=== PATIENT | male | born 1960 ===

== ENCOUNTER 2025-05-18 16:24 | Emergency (ER) | payer MEDICARE, SELFPAY ==
[2025-05-18] VITALS (41 sets, daily range): BP systolic 107–146; BP diastolic 57–82; PULSE 55–75; RESP 7–24; TEMP 36.7; O2SAT 93–98; BMI 34.2
--- NOTE | 2025-05-18 16:35 | ED.GENADULT ---
HPI - General Adult General Date Seen: 05/18/25 Chief complaint: Chest Pain Stated complaint: Chest pain, SOB Time Seen by Provider: 05/18/25 16:35 History of Present Illness HPI narrative: 65-year-old female presenting to the ER today for evaluation of shortness of breath and chest pain. He presents to the ER today with his friend, who helps some thumb in some of his history. The patient is found report that he has had chest pain off and on for about the past 17 years, since 2007. The results like the chest pains have been intermittently, typically once every few months or couple of years over the past couple of days but that the past couple of months have been more frequent, happening a couple times per week. They recall that he had a workup done through the [employer] system in 2018, but it does not sound like he ever had a stress test or an angiogram He apparently did have to go to an ER in [place] about a month ago for chest pain. He apparently had some workup in some of his electrolytes may have been out of balance. He is not exactly sure what is workup showed. It sounds like he did not rule in for STEMI. It sounds like he may have had an outpatient stress test recommended but he never followed up to get it done, because he did not have health insurance. Now that he has turned 65, he is on Medicare He does not have a regular primary care provider. As far as he knows he does not have any other health problems such as high blood pressure, high cholesterol, diabetes, or cancer. However it sounds like he really has not been checked for these either. He and his friend report that he gets chest pain a couple of times per week, often related to exertion when he is working in the shop. He often will have to stop, hold his chest, and rest a few minutes to catch his breath. His current symptoms started yesterday. He started having chest pain yesterday when he had a disagreement with his son. It sounds like he had an episode of chest pain and shortness of breath last night came and. This morning when he was trying to drive his vehicle for work he started having more chest pain is located in the center of his chest. Sometimes it radiates to his left angle of his jaw. Earlier today was radiating down his right arm to the right humerus. It does not typically do that. The pain is been present off and on all today and is much more frequent than normal. It does not radiate to his back or to his abdomen. He describes it as a pain. It is not ripping or tearing. It is not pleuritic. No cough He went home to rest and decided to stop working. While resting and watching shows afternoon he started having more chest pain. At that point he finally gave in an asked his friend to bring him to hospital. He is concerned because the chest pain is more severe and more persistent than normal. He also felt a little bit short of breath. He does not have any swelling in his legs. He is not currently on any medications. He has not taken any aspirin yet today. Related Data Home Medications ?Medication ?Instructions ?Recorded ?Confirmed No Known Home Medications 05/18/25 05/18/25 Allergies Allergy/AdvReac Type Severity Reaction Status Date / Time No Known Drug Allergies Allergy Verified 05/18/25 16:31 [facility] Social History Non-prescribed substance use: denies use Exam Narrative: Exam Narrative: Constitutional: Appears well-developed and well-nourished. Alert. Conversant. Non toxic. HENT: Head: Atraumatic. Nose: Nose normal. Mouth/Throat: Oral mucosa is clear and moist. no trismus. Pharynx normal. Tonsils symmetric. No tonsillar enlargement, erythema, or exudate. Eyes: Conjunctivae normal. EOM normal. Pupils equal, round, and reactive to light. No scleral icterus. Neck: Normal range of motion. Neck supple. No tracheal deviation present. No JVD Cardiovascular: Normal rate, regular rhythm. No gallop. No friction rub. No murmur heard. Symmetric radial and PT artery pulses Pulmonary/Chest: Effort normal. No stridor. No respiratory distress. No wheezes. No rales. No rhonchi . No tenderness. Abdominal: Soft. Bowel sounds normal. No distension. No mass. No tenderness. No rebound. No guarding. Musculoskeletal: RUE: Normal range of motion. No tenderness. No deformity LUE: Normal range of motion. No tenderness. No deformity RLE: Normal range of motion. No edema. No tenderness. No deformity LLE: Normal range of motion. No edema. No tenderness. No deformity Lymph: No cervical adenopathy. Neurological: Alert and oriented to person, place, and time. Normal strength. CN II-VII intact. No sensory deficit. GCS eye subscore is 4. GCS verbal subscore is 5. GCS motor subscore is 6. Normal coordination Skin: Skin is warm and dry. No rash noted. No pallor. Normal capillary refill. Psychiatric: Normal mood. Normal affect. Const: Vital Signs, click to edit/add: Vital Signs - 24 hr 05/18/25 16:27 05/18/25 17:20 05/18/25 17:22 Temperature 98.1 F Pulse Rate 71 68 Pulse Rate [Pulse Oximeter] 66 Respiratory Rate 18 12 12 Blood Pressure 115/73 Blood Pressure [Le ft Upper Arm] 146/82 H Pulse Oximetry 98 94 93 Oxygen Delivery Me thod Room Air 05/18/25 17:30 05/18/25 17:45 05/18/25 17:46 Temperature Pulse Rate 75 59 L 63 Pulse Rate [Pulse Oximeter] Respiratory Rate 12 16 Blood Pressure 125/73 Blood Pressure [Le ft Upper Arm] Pulse Oximetry 93 94 96 Oxygen Delivery Me thod 05/18/25 18:00 05/18/25 18:01 05/18/25 18:15 Temperature Pulse Rate 63 68 60 Pulse Rate [Pulse Oximeter] Respiratory Rate 20 16 14 Blood Pressure 113/66 Blood Pressure [Le ft Upper Arm] Pulse Oximetry 93 93 96 Oxygen Delivery Me thod 05/18/25 18:22 05/18/25 18:30 05/18/25 18:42 Temperature Pulse Rate 62 55 L 55 L Pulse Rate [Pulse Oximeter] Respiratory Rate 9 L 15 20 Blood Pressure 119/69 121/72 Blood Pressure [Le ft Upper Arm] Pulse Oximetry 93 96 94 Oxygen Delivery Me thod 05/18/25 18:45 05/18/25 19:00 05/18/25 19:02 Temperature Pulse Rate 55 L 56 L 56 L Pulse Rate [Pulse Oximeter] Respiratory Rate 21 16 10 L Blood Pressure 123/68 Blood Pressure [Le ft Upper Arm] Pulse Oximetry 94 96 97 Oxygen Delivery Me thod 05/18/25 19:15 05/18/25 19:21 05/18/25 19:30 Temperature Pulse Rate 57 L 59 L 64 Pulse Rate [Pulse Oximeter] Respiratory Rate 15 14 18 Blood Pressure 123/77 Blood Pressure [Le ft Upper Arm] Pulse Oximetry 97 97 94 Oxygen Delivery Me thod 05/18/25 19:42 05/18/25 19:45 05/18/25 20:00 Temperature Pulse Rate 59 L 60 61 Pulse Rate [Pulse Oximeter] Respiratory Rate 8 L 7 L 22 Blood Pressure 111/57 L Blood Pressure [Le ft Upper Arm] Pulse Oximetry 96 96 96 Oxygen Delivery Me thod 05/18/25 20:02 05/18/25 20:03 05/18/25 20:15 Temperature Pulse Rate 57 L 56 L 59 L Pulse Rate [Pulse Oximeter] Respiratory Rate 9 L 11 L 9 L Blood Pressure 119/73 Blood Pressure [Le ft Upper Arm] Pulse Oximetry 96 93 97 Oxygen Delivery Me thod 05/18/25 20:22 05/18/25 20:30 Temperature Pulse Rate 57 L 61 Pulse Rate [Pulse Oximeter] Respiratory Rate 17 14 Blood Pressure 113/60 Blood Pressure [Le ft Upper Arm] Pulse Oximetry 96 96 Oxygen Delivery Me thod Course Course ED Course: Recheck pain down from a 5/10 down to a 1/10 after nitro. The develop a headache. Reevaluation(s) Reevaluation #1: Recheck-pain still essentially gone. May be intermittently a 1/10. Repeat EKG does show still persistent T-wave inversion but less notable T-wave inversion compared to arrival. Vital Signs Vital signs: Initial Vital Signs Temperature 98.1 F 05/18/25 16:27 Temperature Source Temporal Artery Scan 05/18/25 16:27 Pulse Rate 66 05/18/25 16:27 Respiratory Rate 18 05/18/25 16:27 Blood Pressure 146/82 H 05/18/25 16:27 Blood Pressure Mean 103 05/18/25 16:27 Blood Pressure Position Sitting 05/18/25 16:27 Pulse Oximetry 98 05/18/25 16:27 Oxygen Delivery Method Room Air 05/18/25 16:27 Vital Signs Temperature 98.1 F 05/18/25 16:27 Pulse Rate 66 05/18/25 16:27 Respiratory Rate 18 05/18/25 16:27 Blood Pressure 146/82 H 05/18/25 16:27 Pulse Oximetry 98 05/18/25 16:27 Oxygen Delivery Method Room Air 05/18/25 16:27 Temperature 98.1 F 05/18/25 16:27 Pulse Rate 61 05/18/25 20:30 Respiratory Rate 14 05/18/25 20:30 Blood Pressure 113/60 05/18/25 20:22 Pulse Oximetry 96 05/18/25 20:30 Oxygen Delivery Method Room Air 05/18/25 16:27 Medications Administered Medications: Generic Name Dose Route Start Last Admin Trade Name Elisha PRN Reason Stop Dose Admin Nitroglycerin 0.4 mg 05/18/25 16:57 05/18/25 17:28 Nitroglycerin 0.4 Mg Tab.Subl SUBLINGUAL 0.4 mg Q5M PRN Administration Discontinued Medications Generic Name Dose Route Start Last Admin Trade Name Frealexi PRN Reason Stop Dose Admin Aspirin 324 mg 05/18/25 16:57 05/18/25 17:04 Aspirin 81 Mg Tab.Chew PO 05/18/25 16:58 324 mg ONCE ONE Administration Fentanyl 50 mcg 05/18/25 18:00 05/18/25 19:14 Fentanyl 100 Mcg/2 Ml Inj IVP 05/18/25 18:01 Not Given ONCE ONE Fentanyl 50 mcg 05/18/25 18:01 05/18/25 19:13 Fentanyl 100 Mcg/2 Ml Inj IVP 05/18/25 18:02 Not Given ONCE ONE Sodium Chloride 1,000 mls @ 1,000 mls/hr 05/18/25 17:00 05/18/25 19:13 0.9 % Sodium Chloride 1000 Ml IV 05/18/25 17:59 Infused .Q1H GEE Infusion Midazolam HCl 1 mg 05/18/25 18:00 05/18/25 19:13 Midazolam Hcl 1 Mg/Ml Inj IVP 05/18/25 18:01 Not Given ONCE ONE Medical Decision Making MDM Narrative Medical decision making narrative: This patient presents to the ER today for evaluation of chest pain that is been off and on since yesterday. Patient actually has a history of intermittent chest pains occasionally for about 17 years but he has had more persistent more significant chest pain since yesterday. It sounds like he has had some occasional evaluations for chest pain in the past but does not really have good primary care or any follow-up after his ER visit for chest pain because he has not had insurance up until last month when he turns 65 and got Medicare. He does not have a regular doctor.. Differential was broad. No evidence of palpitations, syncope or other cardiac dysrhythmia. We considered possible ACS. HEART score is 6, which is moderate risk. Given time since onset of symptoms, with intermittent pains all afternoon we did check a 2nd 3 hour troponin and is still unchanged at 0.01-normal. Overall his story is concerning, EKG shows T-wave inversions in V3-V6 when he arrived. Pain did respond to nitro. Story is concerning for possible unstable angina. D/w cardiology from [facility]. Based on the patient's clinical presentation and concern about unstable angina. Given the patient's elevated heart score and previous difficulty with outpatient follow-up, absence of any primary care here in [place], statement processor and I agree that the only reasonable and safe option for this patient would be admission for further risk stratification. Since we are not able to do any stress test, nuclear test, coronary CTA or other risk stratification imaging here in [place], transfer to a hospital with cardiology capabilities is indicated. Dr. Tyesha oates accepts the patient to [facility] on behalf of the hospitalist. I discussed this plan of care with the patient and his friends and they gave their agreement. Unfortunately there will be an up to 8 hour delay for bed placement at [facility]. Therefore the patient will have to board here in [place] until bed can be arranged. Will start the patient on heparin for unstable angina. EKG shows no evidence for pericarditis. Clinical presentation not suggestive of myocarditis. Chest x-ray shows no evidence for pneumonia, pneumothorax, pulmonary edema, pleural effusion, rib fracture, cardiomegaly. Mediastinum is normal on the x-ray. The patient has no ripping or tearing pain through to the back and has symmetric pulses on exam, no other acute neuro findings so I doubt aortic dissection. Risk of radiation and contrast exposure would outweigh the benefit of CT angiogram. We considered PE for this patient. He did recently travel from [place] to [place]. No leg swelling. Overall low risk but not 0 risk. Screening D-dimer is normal. Therefore risk of CTA would outweigh the benefit. No wheezing or bronchospasm to suggest COPD/asthma. No signs of chest wall cellulitis, shingles, injury. Discussed with my partner, Dr. Manzano at 10:00 p.m.. She will monitor the patient here in the [place] ER until a bed can be arranged. If he develops worsening chest pain she will repeat EKG look for evolving ST or T-wave changes. He is full code she. . Lab Data Labs: Lab Results 05/18/25 05/18/25 05/18/25 Range/Units 16:57 16:59 20:00 WBC 5.41 (4.50-11.00) K/uL RBC 4.71 (4.30-5.90) m/uL Hgb 14.2 (13.5-17.5) gm/dL Hct 42.4 (37.0-53.0) % MCV 90 (80-100) fL MCH 30 (26-34) pg MCHC 34 (32-36) gm/dL RDW Coeff of Luzma 13.7 (11.5-15.5) % Plt Count 218 (140-440) K/uL Neut % (Auto) 33.2 L (42.0-72.0) % Lymph % (Auto) 49.9 H (20-44) % [place] % (Auto) 12.4 H (0.0-11.0) % Eos % (Auto) 4.3 (0.0-7.0) % Baso % (Auto) 0.2 (0.0-3.0) % Neut # (Auto) 1.80 (1.7-7.0) K/uL Lymph # (Auto) 2.70 (0.90-2.90) K/uL [place] # (Auto) 0.70 (0.00-0.90) K/UL Eos # (Auto) 0.23 (0.00-0.50) K/uL Baso # (Auto) 0.01 (0.00-0.30) K/uL Abs Immat Gran (auto) 0.00 (0.00-0.30) K/uL Imm/Tot Granulo (auto) 0.0 % D-Dimer Quant (PE/DVT) 0.27 (0.00-0.50) ug/ml Sodium 136 (135-149) mmol/L Potassium 3.9 (3.6-5.1) mmol/L Chloride 106 (96-114) mmol/L Carbon Dioxide 21 (20-32) mmol/L Anion Gap 9 (7-15) mEq/L BUN 20 (7-30) mg/dL Creatinine 0.8 (0.5-1.5) mg/dL Estimated Creat Clear 66.46 Estimated GFR 98 ml/min Glucose 120 H (60-115) mg/dL Calcium 9.2 (8.4-10.6) mg/dL POC Troponin I 0.01 0.01 (0.01-0.04) ng/ml Imaging Data Chest x-ray: Attestation: I have reviewed the pertinent imaging results. Radiologist's impression: Findings/Impression: Cardiovascular and mediastinum: Heart size is normal. Unremarkable mediastinum. Lungs and pleural space: Minimal central congestive changes. Remainder of the lungs and pleural spaces are clear. No pneumothorax. No other findings to explain chest pain or shortness of breath. Bones and soft tissues: No acute findings. ECG Data Attestation: I personally reviewed and interpreted this ECG as follows: Interpretation: Normal sinus rhythm Rate 64 NC interval 150 Left axis deviation. Incomplete right bundle-branch block T-wave inversion in leads V3-V6. No ST segment elevation or depression. Suspicious for ischemia but not definitive for STEMI. No old EKGs available for comparison QT 440, QTC 453 Repeat EKG Sinus bradycardia Rate 57 NC interval 154 Normal QRS axis. Incomplete right bundle-branch block. Patient still has T-wave inversions in V3-V4 but less prominent than 1st EKG. She no definite ST segment elevation or depression. QTC 460, QTC 447 Discharge Plan Discharge Clinical Impression: Unstable angina Patient Disposition: [facility] Prescriptions: No Action No Known Home Medications Stand Alone Forms: [employer] Info Instructions
--- NOTE | 2025-05-18 16:57 | CRLHL7_ITS ---
For Patients: As a result of the Century Cures Act, medical imaging exams and procedure reports are released immediately into your electronic medical record. You may view this report before your referring provider. If you have questions, please contact your health care provider. Indication: Chest pain and shortness of breath. Technique: Chest 1 view. Comparison: None. Findings/Impression: Cardiovascular and mediastinum: Heart size is normal. Unremarkable mediastinum. Lungs and pleural space: Minimal central congestive changes. Remainder of the lungs and pleural spaces are clear. No pneumothorax. No other findings to explain chest pain or shortness of breath. Bones and soft tissues: No acute findings. Dictated by Brian Melendez MD @ 05/18/2025 6:15:48 PM (Electronically Signed)
[2025-05-18] MEDS: NITROGLYCERIN 0.4 MG TAB.SUBL SUBLINGUAL ×2 (17:04→17:28)
[2025-05-18] MEDS: ASPIRIN 81 MG TAB.CHEW 324 MG PO (17:04)
[2025-05-18 17:25] LABS: Hematocrit* 42.4 % (37.0-53.0); Hemoglobin* 14.2 gm/dL (13.5-17.5); Immature Granulocytes Abs Auto 0.00 K/uL (0.00-0.30); Immature Granulocytes Pct Auto 0.0 %; Lymphocytes Absolute Auto 2.70 K/uL (0.90-2.90); Mean Corpuscular HGB Conc 34 gm/dL (32-36); Mean Corpuscular Hemoglobin 30 pg (26-34); Mean Corpuscular Volume 90 fL (80-100); RDW Coefficient of Variation % 13.7 % (11.5-15.5); Red Blood Count* 4.71 m/uL (4.30-5.90); White Blood Count* 5.41 K/uL (4.50-11.00)
[2025-05-18 17:34] LABS: Slide Review Reflex No
[2025-05-18 17:46] LABS: Chloride* 106 mmol/L (96-114); Potassium* 3.9 mmol/L (3.6-5.1); Sodium* 136 mmol/L (135-149)
[2025-05-18 17:49] LABS: Anion Gap 9 mEq/L (7-15); Blood Urea Nitrogen* 20 mg/dL (7-30); Calcium* 9.2 mg/dL (8.4-10.6); Carbon Dioxide* 21 mmol/L (20-32); Creatinine* 0.8 mg/dL (0.5-1.5); Est. Creatinine Clearance* 66.46; Estimated Glomerular Filt Rate 98 ml/min; Glucose* 120 mg/dL (60-115)
[2025-05-18 18:01] LABS: D Dimer Quantitative* 0.27 ug/ml (0.00-0.50)
[2025-05-18 18:08] LABS: Troponin, Point-of-Care* 0.01 ng/ml (0.01-0.04)
[2025-05-18 20:15] LABS: Troponin, Point-of-Care* 0.01 ng/ml (0.01-0.04)
[2025-05-18] MEDS: HEPARIN 5,000 UNIT/0.5 ML INJ 4000 UNIT IVP (21:23)
[2025-05-18] MEDS: HEPARIN 25,000 UNIT/500 ML BAG 20 UNIT IV (21:23)
[2025-05-18 21:38] LABS: Hematocrit* 41.4 % (37.0-53.0); Hemoglobin* 13.5 gm/dL (13.5-17.5); Mean Corpuscular HGB Conc 33 gm/dL (32-36); Mean Corpuscular Hemoglobin 30 pg (26-34); Mean Corpuscular Volume 91 fL (80-100); Red Blood Count* 4.55 m/uL (4.30-5.90); White Blood Count* 5.20 K/uL (4.50-11.00)
[2025-05-18 21:39] LABS: Slide Review Reflex No
[2025-05-18 21:54] LABS: INR 1.03 (0.91-1.10); Prothrombin Time 14.3 Seconds
== END 2025-05-18 23:07 | disposition short-term general hospital (02) ==
PROVIDERS: Emergency Provider Emergency Medicine
DX: I20.0 Unstable angina (principal)
CPT/HCPCS: 36415; 71046; 80048; 84484; 85025; 85027; 85379; 85610; 85730; 93005; 96360; 96361; 99284; 99285; A9270; J1644; J7030

== ENCOUNTER 2025-05-18 22:45 | Outpatient (CLI) | payer MEDICARE, SELFPAY | END 2025-05-18 22:46 | disposition home or self-care (01) | LOC: AMB 06-16 01:18 | PROVIDERS: Visit Provider Emergency Medicine | DX: I20.0 Unstable angina (principal) | CPT/HCPCS: A0425; A0434 ==